=== PATIENT | female | born 2000 | race Caucasian/White ===

== ENCOUNTER 2020-06-07 14:06 | Emergency (ER) | payer BC, SELFPAY ==
[2020-06-07 14:16] VITALS: BP 132/79; PULSE 79; RESP 12; TEMP 36.4; O2SAT 99
--- NOTE | 2020-06-07 15:01 | ED.ABDPAIN ---
HPI - Abdominal Pain General Chief Complaint: Back Pain/Injury Stated Complaint: back pain Time Seen by Provider: 06/07/20 14:16 Source: patient Mode of arrival: ambulatory Limitations: no limitations History of Present Illness HPI narrative: Patient is a 20-year-old female who presents to emergency department for evaluation of low back pain patient has a history of low back pain patient was seen in outside hospital in the recent past had negative x-rays of her back is new to the area will be living in this area and is presenting for evaluation of her continued back pain denies new injury or trauma or radicular symptoms or paresthesias patient has not taken anything for symptoms today presents to ER no distress does not appear uncomfortable Related Data Allergies Allergy/AdvReac Type Severity Reaction Status Date / Time unknown IV med Allergy Mild Anaphylactic Uncoded 10/22/17 13:56 Shock Review of Systems Review of Systems: All systems reviewed & are unremarkable except as noted in HPI and below PMFSH Social History Social History (Updated 06/07/20 @ 15:02 by Dion Aquino PA-C) Smoking status: Never smoker Exam Narrative: Exam Narrative: GENERAL: Well-appearing, well-nourished, and in no acute distress. HEAD: Normocephalic, atraumatic. EYES: PERRLA and EOMI. ENT: Nares clear, no rhinorrhea or epistaxis. Mucous membranes moist. CHEST: Clear to auscultation. No respiratory distress. No wheezes rales or rhonchi HEART: Regular rate and rhythm. No murmur heard. EXTREMITIES: Normal range of motion. No edema. Midline lumbar tenderness no deformities noted SKIN: Warm, dry, no rash. NEURO: No focal deficits. Alert and oriented x3. Normal speech and gait. Motor and sensory intact and symmetrical in the extremities PSYCH: Normal mood and affect. Course Course Emergency Course: Patient in the room in no distress at this time will be treated outpatient was given medication in the emergency department and provided with a primary care referral Vital Signs Vital signs: Vital Signs Temperature 97.6 F 06/07/20 14:16 Pulse Rate 79 06/07/20 14:16 Respiratory Rate 12 06/07/20 14:16 Blood Pressure 132/79 06/07/20 14:16 Pulse Oximetry 99 06/07/20 14:16 Temperature 97.6 F 10/20/20 14:16 Pulse Rate 79 06/07/20 14:16 Respiratory Rate 12 06/07/20 14:16 Blood Pressure 132/79 06/07/20 14:16 Pulse Oximetry 99 06/07/20 14:16 MDM - Abdominal Pain MDM Narrative Medical decision making narrative: Patients pain is positional in nature and localized to back without signs of cord compression or cauda equina based on neurological exam, skeletal exam and history. No fever or other significant factors to suggest osteomyelitis or spinal epidural abscess. No symptoms or signs to suggest pain is referred from abdominal or / cardiopulmonary sources. No pulsatile masses noted on exam. Patient ambulates with steady gait and is stable for outpatient management given case findings. Discharge Plan Discharge Clinical Impression: Acute low back pain Patient Disposition: Home, Self-Care Condition: Stable Instructions: Antibiotic Form, Acute Low Back Pain (ED) Additional Instructions: Medications as needed and prescribed. Limit lifting and bending. You may apply heat or cold to the area as needed. Follow up with your doctor for further care. Contact your doctor or return to the emergency department if you develop problems with bladder or bowel function, weakness or loss of feeling in one or both of your legs, or any other serious concerns. Prescriptions: New ibuprofen [IBU] 600 mg tablet 600 mg PO QID PRN (Reason: fever or pain) Qty: 7 RF: 0 lidocaine 5 % adhesive patch,medicated 1 patch topical DAILY Qty: 1 RF: 0 cyclobenzaprine 10 mg tablet 10 mg PO TID PRN (Reason: muscle spasm) Qty: 20 RF: 0 Follow-up/Referrals: Abdon Milton MD [Physician] - PHYSICIAN
== END 2020-06-07 15:15 | disposition home or self-care (01) ==
PROVIDERS: Emergency Provider Emergency Medicine
DX: M54.5 Low back pain (principal)
CPT/HCPCS: 99283

== ENCOUNTER 2022-07-25 20:19 | Emergency (ER) | payer BC, SELFPAY ==
--- NOTE | 2022-07-25 20:20 | ECG_ITS ---
Measurements Intervals [place] Rate: 99 P: 71 MT: 159 QRS: 70 QRSD: 91 T: 47 QT: 333 QTc: 428 Interpretive Statements SINUS RHYTHM NORMAL ECG NO PREVIOUS ECG AVAILABLE FOR COMPARISON Electronically Signed On 07-27-2022 7:19:23 SCANNING MANAGER by Maulik Suarez M.D.
--- NOTE | 2022-07-25 20:22 | ED.AMS ---
HPI - Altered Mental Status General Chief Complaint: Psychiatric Symptoms <Raz Sams MD - Last Filed: 07/25/22 21:47> Stated Complaint: SI <Raz Sams MD - Last Filed: 07/25/22 21:47> Time Seen by Provider: 07/25/22 20:19 <Raz Sams MD - Last Filed: 07/25/22 21:47> History of Present Illness HPI narrative: 22-year-old female presented emergency department for psych evaluation due to alcohol intoxication and making suicidal statements. Father called EMS to the scene because he was concerned that the patient had taken something to harm herself. Patient denies take any medications for harm herself. Police were on scene and patient was becoming very combative. Patient did make suicidal statements to both EMS and to police. Patient arrived to the emergency department in handcuffs but was more appropriate and was able to have the cuffs removed. <Raz Sams MD - Last Filed: 07/25/22 21:47> Related Data Home Medications: Home Medications Medication Instructions Recorded Confirmed No Home Medications 07/25/22 07/25/22 <Raz Sams MD - Last Filed: 07/25/22 21:47> Allergies/Adverse Reactions: Allergies Allergy/AdvReac Type Severity Reaction Status Date / Time unknown IV med Allergy Mild Anaphylactic Uncoded 07/25/22 20:23 Shock <Raz Sams MD - Last Filed: 07/25/22 21:47> Review of Systems Review of Systems: CONSTITUTIONAL: Denies fever, chills, or sweats. EYES: Denies visual changes, redness, or discharge. ENT: Denies rhinorrhea, congestion, sore throat, or otalgia. CARDIOVASCULAR: Denies chest pain, palpitations, or edema. RESPIRATORY: Denies cough or dyspnea. GASTROINTESTINAL: Denies abdominal pain, nausea, vomiting, or diarrhea. GENITOURINARY: Denies dysuria or hematuria. SKIN: Denies rash or itching. MUSCULOSKELETAL: Denies back pain, joint pain, or myalgia. NEUROLOGIC: Denies headache, numbness, or weakness. PSYCHIATRIC: Patient is currently denying suicidal ideation but is still very tearful and agitated <Raz Sams MD - Last Filed: 07/25/22 21:47> [facility] Social History Social History: Social History (Updated 06/07/20 @ 15:02 by Dion Aquino, SIMONE) Smoking status: Never smoker Substance use type: unknown <Raz Sams MD - Last Filed: 07/25/22 21:47> Exam Narrative: APPEARANCE: Well appearing, no pain, no distress, well-nourished. HEAD: normocephalic, atraumatic. EYES: PERRLA/EOMI, conjunctivae clear. NOSE: Normal no drainage EARS:TMS clear with good light reflex. THROAT: Pharynx clear, no exudate. NECK: Supple. No adenopathy, no masses. RESPIRATORY: Airway patent, respirations nonlabored. Clear to auscultation bilaterally, no rales, rhonchi, wheezing. CARDIOVASCULAR: Regular rate and rhythm without murmurs rubs or gallops. ABDOMINAL: Soft, nontender, nondistended, normal bowel sounds MUSCULOSKELETAL: Moves all extremities. Strength/ROM intact, No edema, No calf tenderness. NEURO: Alert. Cranial nerves II through XII intact. Grossly intact SKIN: Warm, dry. Normal Color PSYCHIATRIC: Tearful affect <Raz Sams MD - Last Filed: 07/25/22 21:47> Course Course Emergency Course: On reevaluation patient states that she only made the suicidal statements due to being angry. Patient states she is not suicidal at this time. Patient is intoxicated. Plan for disposition is to await for sobriety and have crisis counselor evaluation. Patient care signed out to Dr. Valdivia. <Raz Sams MD - Last Filed: 07/25/22 21:47> Reevaluation(s) Reevaluation #1: Patient been resting quietly in the emergency room without any issues or problems. Patient denied any suicidal or homicidal ideation, and would like to go home. Patient reports a history of bipolar, off her medication or 2 to 3 months, and is scheduled to see her psychiatrist soon. Crisis evaluation confirm that patient can go home and saf
[2022-07-25 20:24] VITALS: BP 137/86; PULSE 125; RESP 26; TEMP 36.8; O2SAT 98
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
--- NOTE | 2022-07-25 20:57 | PC.NURSE ---
Pt to bathroom with sitter.
--- NOTE | 2022-07-25 20:57 | PC.NURSE ---
Pt belonging collected - placed into storage; one necklace in a specimen cup 2 White sneakers 1 black hoodie 1 pair of black leggings 2 socks 1 bra 1 underwear
[2022-07-25 21:01] LABS: Basophils Percent Auto 0.4 % (0.2-1.2); Eosinophils Absolute Auto 0.1 K/mm3 (0-0.3); Eosinophils Percent Auto 0.9 % (0-4.4); Hematocrit 43.6 % (37.0-47.0); Hemoglobin 15.8 g/dL (12.0-15.0); Immature Granulocyte Absolute 0.02 K/mm3 (0.00-0.031); Immature Granulocyte Percent A 0.2 % (0-0.5); Lymphocytes Percent Auto 30.9 % (18.3-44.2); Mean Corpuscular HGB Conc 36.2 g/dl (32-36); Mean Corpuscular Hemoglobin 32.5 pg (26-34); Mean Corpuscular Volume 89.7 fl (80-100); Mean Platelet Volume 9.5 fl (7.4-10.4); Monocytes Absolute Auto 0.6 K/mm3 (0.1-0.6); Monocytes Percent Auto 6.7 % (2.6-8.5); Neutrophils Absolute Auto 5.7 K/mm3 (1.3-6.7); Neutrophils Percent Auto 60.9 % (45.5-73.1); Platelet Count Result 331 k/mm3 (150-375); Red Blood Count 4.86 M/mm3 (4.2-5.4); Red Cell Distribution Width 11.8 % (11.5-14.5); White Blood Count 9.4 K/mm3 (4.5-10.0)
[2022-07-25 21:11] LABS: Magnesium 1.8 mg/dL (1.6-2.3)
[2022-07-25 21:12] LABS: Acetaminophen < 10 ug/mL (10-30); Ethanol 207 mg/dL (<10); Salicylate < 1.0 mg/dL (2-20)
[2022-07-25 21:13] LABS: Alanine Aminotransferase 19 U/L (6-35); Albumin Level 4.8 g/dL (3.5-5.1); Alkaline Phosphatase 54 U/L (38-126); Anion Gap 13 mmol/L (8-16); Aspartate Amino Transferase 30 U/L (14-36); Bilirubin,Total 0.8 mg/dL (0.2-1.3); Blood Urea Nitrogen 9 mg/dL (7-17); Carbon Dioxide 22 mmol/L (22-30); Chloride 107 mmol/L (98-107); Estimated CRCL calculation 89 ml/min; Estimated Glomerular Filt Rate > 60; Glucose 103 mg/dL (65-110); Potassium 3.6 mmol/L (3.4-5.0); Sodium 142 mmol/L (137-145)
--- NOTE | 2022-07-25 21:15 | PC.NURSE ---
Parents and sister arrived to ER. Patient declines wanting to see family, states nurse unable to give family update at this time. also aware of her privacy preferences.
--- NOTE | 2022-07-25 21:20 | PC.NURSE ---
Drivers License added to patient belonging bag. Secured
--- NOTE | 2022-07-25 21:22 | PC.NURSE ---
No IM medications given or needed. Patient presented very tearful and upset, but is now cooperative with care, quiet, answering questions appropriately. Resting appropriately in bed, no distress or combative behavior.
[2022-07-25 21:23] LABS: Appearance Urine Clear (Clear); Bilirubin Urine Negative (Negative); Blood Urine 1+ (Negative); Color Urine Yellow (Yellow); Glucose Urine UA Negative (Negative); Ketones Urine Negative (Negative); Leukocyte Esterase Ur Negative LEU/UL (Negative); Nitrate Urine Negative (Negative); Protein Urine 3+ mg/dL (Negative); Specific Grav Ur 1.025 (1.001-1.035); Urobilinogen Urine 0.2 mg/dL (<2.0)
--- NOTE | 2022-07-25 21:30 | PC.NURSE ---
PD completed INVOLUNTARY admission paperwork, left phone number should any issues arise with paperwork and / or patient.
[2022-07-25 21:36] LABS: Bacteria Urine Trace /hpf; Mucus Urine Rare /lpf; Squamous Epithelial Cell Urine Many /hpf (Few); WBC Urine 31-50 /hpf
[2022-07-25 21:54] LABS: Add Urine Microscopic? YES
[2022-07-25 21:58] LABS: Amphetamine Screen Urine Negative (Negative); Barbiturate Screen Urine Negative (Negative); Benzodiazepines Screen Urine Negative (Negative); Cannabinoid Screen Urine Positive (Negative); Cocaine Screen Urine Negative (Negative); Methadone Screen Urine Negative (Negative); Opiate Screen Urine Negative (Negative); Phencyclidine Screen Urine Negative (Negative)
--- NOTE | 2022-07-25 23:30 | PC.NURSE ---
Pt updated on plan of care to redraw labs at 1 AM due to high EtOH. AMARA must be lowered and/ or zero before patient can be evaluated by Crisis. Pt again tearful. Care transferred to night nurseRoseline.
[2022-07-26 00:26] LABS: Ethanol 130 mg/dL (<10)
[2022-07-26 05:36] LABS: Ethanol 50 mg/dL (<10)
[2022-07-26 07:30] VITALS: BP 112/75; PULSE 97; O2SAT 100
--- NOTE | 2022-07-26 08:12 | PC.NURSE ---
low risk; sitter at bedside for elopement risk but suicide observation flow sheet discontinued
--- NOTE | 2022-07-26 08:15 | PC.NURSE ---
pt. sleeping when entered room; easily awaken. Skin signs and breathing wnl. NAD. Updated that awaiting crisis.
[2022-07-26 09:42] VITALS: BP 130/74; PULSE 80; RESP 16; O2SAT 99
== END 2022-07-26 10:06 | disposition home or self-care (01) ==
PROVIDERS: Emergency Medicine; Emergency Provider Emergency Medicine
DX: F10.129 Alcohol abuse with intoxication, unspecified (principal); F31.9 Bipolar disorder, unspecified; Y90.6 Blood alcohol level of 120-199 mg/100 ml
CPT/HCPCS: 36415; 80053; 80307; 81001; 81025; 83735; 84443; 85025; 87086; 87088; 93005; 99284

== ENCOUNTER 2025-01-14 16:21 | Emergency (ER) | payer BC, SELFPAY ==
--- OUTSIDE RECORDS SUMMARY | 2025-01-14 16:23 | XMS_ITS | Clinical Summary ---
Author Organization [facility] [employer] [facility] Address [address] [place] [address] Care Team Providers Care Assembly Mechanic Name Role Phone Unavailable Primary Care Provider Unavailabl e Social History Tobacco Use Types Packs/Day Years Used Date Smoking Tobacco: Never Assessed Comments Unknown Sex and Gender Information Value Date Recorded Sex Assigned at Not on file Legal Sex Female 8:52 AM JIG MAKER Gender Identity Not on file Sexual Orientation Not on file Plan of Treatment Health Maintenance Due Date Last Done Comments HPV VACCINES (1 - 3-dose series) 2015 DTAP/TDAP/TD VACCINES (1 - Tdap) 2019 HEPATITIS B VACCINES (1 of 3 - 19+ 3-dose series) 02/17 CERVICAL CANCER SCREENING 2021 HPV/Cotest (21-29) 2021 PAP SMEAR 2021 INFLUENZA VACCINE (#1) 2024 Insurance [facility] BLUE ACCESS CHOICE
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
[2025-01-14 16:27] VITALS: BP 126/74; PULSE 80; RESP 18; TEMP 36.8; O2SAT 100
--- NOTE | 2025-01-14 16:44 | ED_ITS ---
HPI - Skin/Abscess/Foreign Bdy General Chief complaint: Skin/Abscess/Foreign Body Stated complaint: poison ange Source: patient and RN notes reviewed Mode of arrival: ambulatory Limitations: no limitations History of Present Illness HPI narrative: 24-year-old female presents Express Care complaining of rash to face and thigh for 2-3 days. Patient reports she was camping over the weekend and she believes she was exposed to poison ange. Patient reports a pruritic rash that is scatter over the right side of her face and in the medial parts of her thigh. Patient says she has been using hydrocortisone cream without relief. Patient denies any fevers, discharge, pain, vision changes, blurry vision, eye pain, eye discharge, or any other symptoms. Patient denies any significant past medical history. Related Data Allergies Allergy/AdvReac Type Severity Reaction Status Date / Time No Known Allergies Allergy Verified 01/14/25 16:41 Review of Systems Review of Systems: CONSTITUTIONAL: Denies fever, chills, or sweats. EYES: Denies visual changes, pain, redness, or discharge. ENT: Denies rhinorrhea, congestion, sore throat, or otalgia. CARDIOVASCULAR: Denies chest pain, palpitations, or edema. RESPIRATORY: Denies cough or dyspnea. GASTROINTESTINAL: Denies abdominal pain, nausea, vomiting, or diarrhea. GENITOURINARY: Denies dysuria or hematuria. SKIN: Positive for rash and itching. MUSCULOSKELETAL: Denies back pain, joint pain, or myalgia. NEUROLOGIC: Denies headache, numbness, or weakness. PSYCHIATRIC: Denies anxiety or depression. All other systems reviewed are negative, except as documented in HPI. PMFSH Social History Social History Smoking status: Never smoker Substance use type: unknown Comments At the time of my signature, I reviewed and agree with the nursing past medical, surgical, social, and family history. There is no relevant family history pertinent to the patient complaint. Exam Narrative: GENERAL: This is a well-nourished, well-developed adult, in no apparent distress. They are non ill-appearing, nontoxic appearing. HEAD: normocephalic, atraumatic. EYES: Sclera clear/white. Conjunctiva normal. Vision is grossly intact. Extraocular movements intact. Pupils PERRLA Upper and lower eyelids normal without redness, swelling, rash bilaterally. EARS: External ears normal. Hearing grossly intact. NOSE: External nose normal THROAT: Mucous membranes moist NECK: Neck supple CARDIOVASCULAR: Regular rate and rhythm without murmurs, gallops, or rubs. RESPIRATORY: Clear to auscultation. Breath sounds equal bilaterally. No wheezes, rales, or rhonchi. GASTROINTESTINAL: Abdomen soft, non-tender, nondistended. Bowel sounds are active. No hepato-splenomegaly, or palpable masses. No guarding. SKIN: Erythematous papular, pruritic, vesicular rash present to patient's primarily on the right side of her face partially on the left side, and the upper medial thighs. No exudate, surrounding cellulitis, induration, area of fluctuance. No excoriation. NEURO: awake, alert, and oriented to person, place and time. There were no obvious focal neurologic abnormalities. EXTREMITIES: No joint tenderness, effusion, or edema noted. Course Course Emergency Course: Portions of this record may have been created with voice recognition software Level of Care: Express Care Visit Vital Signs Vital signs: Vital Signs Temperature 98.3 F 01/14/25 16:27 Pulse Rate 80 01/14/25 16:27 Respiratory Rate 18 01/14/25 16:27 Blood Pressure 126/74 01/14/25 16:27 Pulse Oximetry 100 01/14/25 16:27 Oxygen Delivery Room Air 01/14/25 16:27 Temperature 98.3 F 01/14/25 16:27 Pulse Rate 80 01/14/25 16:27 Respiratory Rate 18 01/14/25 16:27 Blood Pressure 126/74 01/14/25 16:27 Pulse Oximetry 100 01/14/25 16:27 Oxygen Delivery Room Air 01/14/25 16:27 Reviewed MDM - Skin/Abscess/Foreign Bdy MDM Narrative Medical decision making narrative: Patient likely has a contact dermatitis related to poison ange. No evidence of involvement to patient eye or eyelids. Patient denies any vision problems or eye pain. Given the involvement of her face will go ahead and treat her with a prednisone Dosepak. Discussed physical exam findings. Advised supportive measures and signs/symptoms to go to the ER. Pt is appropriate for outpt treatment and f/u. Differential Diagnosis Differential diagnosis: Likely dermatophytosis, cellulitis, insect bites and contact dermatitis Critical Care Time Critical Care Time Critical Care Time: No Discharge Plan Discharge Clinical Impression: Poison ange dermatitis Patient Disposition: Home Condition: Stable Instructions: Poison Ange (ED) Additional Instructions: Take the prednisone as directed. Please take in the morning with food. You may use [id number] Tecnu soap to help wash the clement of the poison ange off her skin. May purchase this at [facility] [place]. Follow directions on the bottle. Follow-up with PCP in 3-5 days. If you develop any worsening redness, swelling, discharge, fevers, breathing problems or any other concerns please go to the ER immediately. Patient Language: Chinese Prescriptions: New prednisone 10 mg tablet See Taper PO DAILY Qty: 42 0RF Taper: Prednisone Taper from 60 mg;12 days 60 mg DAILY for 2 Days and 0 Hour 50 mg DAILY for 2 Days and 0 Hour 40 mg DAILY for 2 Days and 0 Hour 30 mg DAILY for 2 Days and 0 Hour 20 mg DAILY for 2 Days and 0 Hour 10 mg DAILY for 2 Days and 0 Hour Follow-up/Referrals: PHYSICIAN,POSTPARTUM NURSE [Primary Care Provider] - Time of Disposition: 16:42
== END 2025-01-14 16:47 | disposition home or self-care (01) ==
PROVIDERS: Referring Provider Emergency Medicine
DX: L23.7 Allergic contact dermatitis due to plants, except food (principal)
CPT/HCPCS: 99213; G0463